=== PATIENT | female | born 1940 | race Caucasian/White ===

== ENCOUNTER 2020-03-02 09:13 | Emergency (ER) | payer MEDICARE ==
[2020-03-02 09:45] LABS: #Basophils 0.1 thou/uL (0.0-0.2); #Eosinphils 0.2 thou/uL (0.0-0.7); #Lymphocytes 0.7 thou/uL (1.20-3.40); #Monocytes 0.5 thou/uL (0.11-0.59); #Neutrophils 3.9 thou/uL (1.40-6.50); %Basophils 0.9 % (0.0-1.0); %Eosinophils 4.6 % (0.0-10.0); %Lymphocytes 12.7 % (21.0-51.0); %Monocytes 8.4 % (0.0-10.0); %Neutrophils 73.4 % (42.0-75.0); Hemoglobin 12.2 g/dL (12.0-16.0); Mean Corpuscular HGB CONC 33.5 g/dL (32.0-36.0); Mean Corpuscular Hemoglobin 34.1 pg (27.0-31.0); Mean Platelet Volume 8.9 fL (7.4-10.4); Platelet Count 162 thou/uL (130-400); RBC Distribution Width 10.8 % (11.5-14.5); Red Blood Cell (RBC) Count 3.58 mill/uL (4.20-5.40); White Blood Cell (WBC) Count 5.4 thou/uL (4.8-10.8)
[2020-03-02] MEDS ORDERED: Ondansetron PF 4 MG/2 ML Vial ONE (09:46)
[2020-03-02 10:02] LABS: ALT (SGPT) 23 U/L (8-55); AST (SGOT) 30 U/L (5-34); Alkaline Phosphatase 55 U/L (40-110); Anion Gap 15 mmol/L (10-20); BUN (Urea Nitrogen) 36 mg/dL (9.8-20.1); Bilirubin, Total 0.2 mg/dL (0.2-1.2); Calc. Creatinine Clearance 0 mL/min (70-130); Calcium 9.9 mg/dL (7.8-10.44); Carbon Dioxide 23 mmol/L (23-31); Chloride 100 mmol/L (98-107); Estimated GFR-MDRD 56; Globulin 2.5 g/dL (2.4-3.5); Glucose 84 mg/dL (83-110); Lipase 42 U/L (8-78); Potassium 3.9 mmol/L (3.5-5.1); Protein, Total 6.5 g/dL (6.0-8.3); Sodium 134 mmol/L (136-145)
--- NOTE | 2020-03-02 10:26 | RAD ---
EXAM: Single view of the chest HISTORY: Myocardial infarction. COMPARISON: 06/04/2017 FINDINGS: Single view of the chest shows a normal sized cardiomediastinal silhouette. There is no shereen dence of consolidation, mass, or pleural effusion. Hardware seen in the cervical spine. IMPRESSION: No evidence of acute cardiopulmonary disease
--- NOTE | 2020-03-02 10:56 | CT ---
CT BRAIN WITHOUT CONTRAST: HISTORY: Dizziness. COMPARISON: 06/04/2017. FINDINGS: There is artifact from a metallic device in the right posterior parietal region which is new since th e last exam. No definite acute infarct, hemorrhage, midline shift, or abnormal extraaxial fluid collections are se en. The ventricular size is appropriate and the basilar cisterns patent. The bony calvarium is inta ct. The visualized paranasal sinuses are well aerated. There are postop changes in the right mastoi d. IMPRESSION: No definite CT evidence of acute intracranial process. POS: [facility]
[2020-03-02] MEDS ORDERED: Meclizine HCl 25 MG TAB ONE (11:28)
[2020-03-02 11:31] LABS: Bilirubin Negative (Negative); Blood, Urine Negative (Negative); Clarity Clear (Clear); Glucose, Urine (Dipstick) Normal (Negative); Leukocyte Negative Leu/uL (Negative); Nitrite 2+ (Negative); Protein, Urine (Dipstick) Negative (Neg-Trace); RBC/HPF None Seen HPF (0-3); Squamous Epithelial None Seen HPF (0-3); Urobilinogen Normal mg/dL (Less than 2); WBC/HPF 0-3 HPF (0-3)
[2020-03-02 11:42] LABS: Bacteria/HPF 4+ HPF (None Seen)
[2020-03-02] MEDS ORDERED: cefTRIAXone\\ROCEPHIN 2 GM VIAL ONE (12:42)
--- NOTE | 2020-03-05 15:31 | EKG ---
Test Reason : Blood Pressure : / mmHG Vent. Rate : 054 BPM Atrial Rate : 054 BPM P-R Int : 218 ms QRS Dur : 078 ms QT Int : 496 ms P-R-T Axes : 050 -34 072 degrees QTc Int : 470 ms Sinus bradycardia with 1st degree A-V block Left axis deviation Nonspecific ST and T wave abnormality Prolonged QT Abnormal ECG Confirmed by KIESHA WATSON, LUIS ANGEL ([id number]), managing editor GABRIELA ECHAVARRIA ([id number]) on 03/05/2020 3:30:46 PM Referred By: Confirmed By:LUIS ANGEL POP MD
== END 2020-03-02 15:15 | disposition home or self-care (01) ==
LOC: ERS 09:13
DX: R42 Dizziness and giddiness (principal); N39.0 Urinary tract infection, site not specified; R00.1 Bradycardia, unspecified; R11.2 Nausea with vomiting, unspecified; E03.9 Hypothyroidism, unspecified; E78.5 Hyperlipidemia, unspecified; E78.00 Pure hypercholesterolemia, unspecified; I10 Essential (primary) hypertension; Z86.73 Personal history of transient ischemic attack (TIA), and cerebral infarction without residual deficits
CPT/HCPCS: 36415; 51701; 70450; 71045; 80053; 81003; 81015; 83690; 84484; 85025; 87077; 87086; 87186; 93005; 96361; 96365; 96375; J0696; J2405